=== PATIENT | female | born 1990 | race Caucasian/White ===

== ENCOUNTER 2018-07-03 16:13 | Inpatient (IN) | payer OTHER ==
[~2018-07-03] VITALS: Ht 177.8 cm; Wt 80.7 kg
[2018-07-03] MEDS ORDERED: ADDERALL 30 MG30 MG PO (16:47)
[2018-07-03] MEDS ORDERED: ZOLPIDEM TART12.5 M1 PO (16:48)
[2018-07-03] MEDS ORDERED: CLONAZEPAM0.5 M2 PO (16:48)
[2018-07-03 16:49] LABS: ABSOLUTE BASOPHIL COUNT 0 /CUMM (0.0-0.2); ABSOLUTE EOSINOPHIL COUNT 0.1 /CUMM (0.0-0.7); ABSOLUTE MONOCYTE COUNT 0.3 /CUMM (0.10-0.60); BASOPHIL % 0.4 % (0.0-2.0); GRANULOCYTE % 61.9 % (42.2-75.2); HEMATOCRIT 39.7 % (37-47); MEAN CORPUSCULAR HGB 30.7 PG (27.0-31.0); MEAN CORPUSCULAR HGB CONC 33.3 G/DL (33.0-37.0); MEAN CORPUSCULAR VOLUME 92.1 FL (81.0-99.0); MEAN PLATELET VOLUME 8.9 FL (7.4-10.4); PLATELET COUNT 202 /CUMM (130-400); RBC DISTRIBUTION WIDTH 13.3 % (11.5-14.5); RED BLOOD CELL CT 4.31 /CUMM (4.20-5.40); WHITE BLOOD CELL COUNT 6.5 /CUMM (4.8-10.8)
[2018-07-03] MEDS ORDERED: ZOLOFT100 M1 PO (16:49)
[2018-07-03] MEDS ORDERED: TRAZODONE HCL100 M1 PO (16:49)
[2018-07-03] MEDS ORDERED: SEASONIQUE 0.11 EACH PO (16:50)
[2018-07-03] MEDS ORDERED: MULTIVITAMINS1 EAC9 PO (16:51)
--- NOTE | 2018-07-03 16:56 | ED PSYCHIATRIC COMPLAINT ---
History of Present Illness General Chief Complaint: Psychiatric Related Complaint Stated Complaint: DEPRESSION, ANXIETY, +SI, SELF HARM Source: patient Exam Limitations: no limitations Vital Signs & Intake/Output Vital Signs & Intake/Output Vital Signs Date Time Temp Pulse Resp B/P B/P Pulse O2 O2 Flow FiO2 Mean Ox Delivery Rate 07/03 1617 97.9 86 18 132/85 99 Room Air Allergies Coded Allergies: morphine (Intermediate, HIVES 07/03/18) Reconcile Medications Clonazepam 0.5 MG TABLET 1 TAB PO QPM SLEEP/ANXIETY (Reported) Dextroamphetamine/Amphetamine (Adderall 30 MG Tablet) 30 MG TABLET 1 TAB PO TID ADD (Reported) L-Norgest/E.estradion-E.estrad (Seasonique 0.15-0.03-0.01 Tab) 0.15 MG-30 MCG ( 84)/10 MCG (7) TBDSPK.3MO 1 TAB PO DAILY CONTROL (Reported) Multiple Vitamin (Multivitamins) 1 EACH TABLET 1 TAB PO DAILY SUPPLEMENT ( Reported) Sertraline HCl (Zoloft) 100 MG TABLET 1 TAB PO QPM MENTAL HEALTH (Reported) Trazodone HCl 100 MG TABLET 2 TAB PO QPM SLEEP/MENTAL HEALTH (Reported) Zolpidem Tartrate (Zolpidem Tartrate ER) 12.5 MG TAB.MPHASE 2 TAB PO QPM SLEEP (Reported) Triage Note: PT STATES THAT SHE HAS HISTORY OF DEPRESSION AND THAT SHE HAS BEEN SPIRALING DOWN FOR THE PAST 5 YEARS . STATES THAT SHE HAS BEEN HAVING POSITIVE SI THOUGHTS WITH PLAN TO OD ON HER MEDS. ALSO STATES THAT SHE HAS BEEN BURNING HERSELF WITH HER CURLING IRON OR CIGARETTES. DENIES ETOH/DRUGS , PT ADMITS TO TAKING MORE THAN PRESCRIBED TRAZADONE TO TRY TO SLEEP. Triage Nurses Notes Reviewed? yes Onset: Gradual Duration: week(s): Timing: recent history Severity: moderate : No Patient currently breastfeeds: No HPI: 28YO FEMALE with hx of depression, anxiety presents to emergency department complaining of worsening depression and suicidal ideation for the past few months. Patient states the symptoms have recently worsened this month. Patient states that her suicidal thoughts for almost constant. Patient states she tried to break into her father's gun safe however was unsuccessful. She has been inflicting self harm by burning herself with cigarettes. Patient reports anhedonia and lack of appetite. Patient admits to taking more trazodone then prescribed because she is still having difficulty sleeping. She last saw her psychiatrist 4 days ago however did not inform them of her suicidal ideation, she only told him about her increased anxiety. Denies drug use, excessive alcohol use, HI. (Kristel Carranza) Past History Travel History Traveled to [place] past 21 day No Medical History Any Pertinent Medical History? see below for history Neurological: NONE EENT: NONE Cardiovascular: NONE Respiratory: NONE Gastrointestinal: NONE Hepatic: NONE Renal: NONE Musculoskeletal: NONE Psychiatric: anxiety, depression Blood Disorders: anemia Cancer(s): NONE Isolation History: Standard Surgical History Surgical History: non-contributory Psychosocial History What is your primary language Greenlandic Tobacco Use: Never used ETOH Use: denies use Illicit Drug Use: denies illicit drug use Family History Hx Contributory? No (Kristel Carranza) Review of Systems Review of Systems Constitutional: Reports: no symptoms. EENTM: Reports: no symptoms. Respiratory: Reports: no symptoms. Cardiovascular: Reports: no symptoms. GI: Reports: no symptoms. Genitourinary: Reports: no symptoms. Musculoskeletal: Reports: no symptoms. Skin: Reports: see HPI. Neurological/Psychological: Reports: see HPI. Hematologic/Endocrine: Reports: no symptoms. Immunologic/Allergic: Reports: no symptoms. All Other Systems: Reviewed and Negative (Kristel Carranza) Physical Exam Physical Exam General Appearance: well developed/nourished, no apparent distress, alert, awake Head: atraumatic, normal appearance Eyes: Bilateral: normal appearance, PERRL, EOMI. Ears, Nose, Throat: normal pharynx, hearing grossly normal Neck: normal inspection, supple, full range of motion Respiratory: normal breath sounds, no respiratory distress, lungs clear Cardiovascular: regular rate/rhythm Gastrointestinal: normal bowel sounds, soft, bilateral lower abdominal tenderness with circular burn diane to abdomen Extremities: normal range of motion Neurological/Psychiatric: awake, alert, calm Appearance/Memory/Insight: appropriate appearance Behavoir/Eye Contact/Speech: cooperative Thoughts/Hallucinations: normal thought pattern, no apparent hallucination Skin: circular burn rios to abdomen and left forearm SAD PERSONS SAD PERSONS Response Value Depression/Hopelessness? yes 2 Single//? yes 1 Social Support? has no support 1 Stated Future Intent? yes 2 Total 6 SAD PERSONS Done? yes (Calra MARY,Kristel Mckeon) Progress Differential Diagnosis: drug intoxication, drug overdose, drug withdrawal, electrolyte abnormality, depression, suicidal ideation Plan of Care: Orders Procedure Date/time Status Regular Diet 07/04 B Active Admit to inpatient psych 07/03 1935 Active Continuous Observation Monitor 07/03 162 Active URINE 07/03 162 Complete URINE DRUG SCREEN FOR ER ONLY 07/03 1621 Complete URINALYSIS 07/03 1621 Complete ETHANOL 07/03 1621 Complete COMPREHENSIVE METABOLIC PANEL 07/03 1621 Complete CBC WITHOUT DIFFERENTIAL 07/03 1621 Complete ED CRISIS PSYCH CONSULT 07/03 162 Active Current Medications Sig/Yvonne Start time Last Medication Dose Stop Time Status Admin Clonazepam 0.5 MG QPM 07/03 2100 UNVr (KlonoPIN) 07/10 2059 Trazodone HCl 200 MG QPM 07/03 2100 UNVr (Desyrel) Laboratory Tests 07/03/18 1723: Urine Opiates Screen < 100, Methadone Screen < 40, Barbiturate Screen < 60, Ur Phencyclidine Scrn < 6.00, Amphetamines Screen < 100, U Benzodiazepines Scrn 182 , Urine Cocaine Screen < 50, Urine Cannabis Screen 26.40, Urine Color YEL, Urine Clarity HAZY H, Urine pH 6.0, Ur Specific [place] >= 1.030, Urine Protein NEG, Urine Ketones NEG, Urine Nitrite NEG, Urine Bilirubin NEG, Urine Urobilinogen 0.2, Ur Leukocyte Esterase NEG, Ur Microscopic SEDIMENT EXAMINED, Urine RBC 3-5, Urine WBC 1-3 H, Ur Epithelial Cells FEW, Urine Hemoglobin TRACE-INTACT, Urine Glucose NEG, Urine Test NEGATIVE 07/03/18 1635: Anion Gap 7, Estimated GFR > 60, BUN/Creatinine Ratio 31.4 H, Glucose 91, Calcium 9.6, Total Bilirubin 0.3, AST 24, ALT 29, Alkaline Phosphatase 41, Total Protein 6.9, Albumin 4.3, Globulin 2.6, Albumin/Globulin Ratio 1.7, CBC w Diff NO MAN DIFF REQ, RBC 4.31, MCV 92.1, MCH 30.7, MCHC 33.3, RDW 13.3, MPV 8.9, Gran % 61.9, Lymphocytes % 30.4, Monocytes % 5.3, Eosinophils % 2.0, Basophils % 0.4, Absolute Granulocytes 4.0, Absolute Lymphocytes 2.0, Absolute Monocytes 0.3 , Absolute Eosinophils 0.1, Absolute Basophils 0, Serum Alcohol < 10.0 Patient's labs are stable. She is awaiting crisis evaluation. The patient was signed out to Dr. Daley pending crisis evaluation and disposition. Hand-Off Endorsed To: Magdaleno Daley DO Endorsed Time: 1846 Pending: consult (crisis) (Kristel Carranza) Departure Departure Disposition: STILL A PATIENT Condition: Stable Clinical Impression Primary Impression: Suicidal ideation Referrals: Patient Has No Primary Care Dr (PCP/Family) Departure Forms: Customer Survey General Discharge Information (Kristel Carranza) Psych Admission Note Psychiatric Admission: I have seen and evaluated KIYA CALABRESE. I have also reviewed all the pertinent lab results and diagnostic results. KIYA CALABRESE will be admitted to our inpatient Psychiatric unit for treatment and care. She is being admitted to Inpatient Psychiatry for major depression. Currently she is awake alert and oriented 3. (Magdaleno Daley DO)
--- NOTE | 2018-07-03 18:50 | ED PSYCH CRISIS CONSULTATION ---
Crisis Consult Basic Assessment Date of Consult: 07/03/18 Responsible Person/Accompanied By: self and friend Luz Maria Insurance Authorization: Insurance #1: Insurance name: LESLI BETANCOURT Phone number: Policy number: [id number] Group number: Authorization number: ED Provider: Patient's ED Provider: Kristel Carranza Primary Care Physician: Patient's PCP: Patient Has No Primary Care Dr PCP's Phone Number: Current Psychiatrist: Alex Jovel APRN at the [facility] Chief Complaint: Psychiatric Related Complaint Patient's Quote: "my suicidal thoughts are constant" Present Illness: Pt. was a 28 year old female, with long black hair and a tattoo on her left forearm, seen in the ER. She came in with her friend Luz Maria who she and friend reported had been hospitalized psychiatrically at [facility] in December. She reported that the friend had helped her talk about what had been bothering her and had supported her and helped her "feel ok" asking for help. Pt. stated that she had been feeling more depressed for 3 months, had started burning herself with a curling iron and cigarettes during this time and had more frequent and "more rational" suicidal thoughts, especially in the last week. She reported she attempted to guess the code to her father's gun safe to access a gun to kill herself with. She has no other suicidal attempts and only reported past SI 5 years ago when her boyfriend . She reported she had unresolved feelings of grief about her boyfriend's . She reported he had been using opiates or fentanyl, she found out, asking him to stop. He had stopped for awhile but he relapsed and overdosed and . She reported she started dating someone else "too soon" after that relationship, was engaged to that man, but he had cheated on her and had "knowingly" given her herpes within the last year after cheating and that relationship ended. She reported this man was a recovering addict too. She stated she had no history of drug use or abuse , but reported she "used" her psychiatric medications which included Adderall, Klonopin, Zoloft, Ambien and Trazodone. She denied abusing any of these drugs but stated sometimes when it felt like they were not working she took one more pill than prescribed, only with the Klonpin and Trazodone. She denied any past hospitalizations for psychiatric reasons and stated she had been seeing Alex Graysonnatalia DOBBINS at the [facility] since she was 18. She said he knew "a little" about what had been going on, but she was embarassed to talk about it in depth with anyone because she feared others would medical coding specialist her and think "she should be over it by now". She lived with her parents in [place], [place] and did not have a job. She reported she "sat and home and thought" and did little else with her time. Patient's Address: [place] [address] Other Phone Number: Who Do You Live With? Mother Family/Informants Interviewed: Spoke with Ang Treadwell on the phone [phone]. Mom stated she's scared to for her. She knows about the self harm, and extreme depression. She said her daughter told her she thinks of ways to end her life. Mom is shocked by the self harm incidents and this makes her believe she might do something and is suicidal. She reported her daughter was sad and withdrawn most of the time. Both parents are scared about this. Mom reported that her moods are either extremely high or low (example: she will bleach everything in her room to clean and then hours later will go back into her room and lay down, sleeping until 4 pm. Mom also reported that she has bleached her body because she thinks she has parasites and then other times she won't shower for days on end and she does not take care of her hygiene. Mom reported she saw a burn on her leg today and pt. told her she burned herself with a curling iron. Mom feels she is in the safest place she can be right now, in the ER. Mom reported pt. told her she hears voices at times telling her to hurt herself. Mom reported her daughter has low self esteem, she tells herself she is ugly and fat, she had gastric bypass surgery a few years ago and has lost alot of weight. She is very unhappy with everything in her life. She wears only long dresses or sweatpants to hide the rios on her legs. Mom reported she drinks alot. Allergies - Coded Allergies: morphine (Intermediate, HIVES 07/03/18) Current Medications - Scheduled Medications Clonazepam 0.5 MG TABLET 1 TAB PO QPM SLEEP/ANXIETY (Reported) Entered as Reported by Brigida Gaytan on 07/03/18 1648 Dextroamphetamine/Amphetamine (Adderall 30 MG Tablet) 30 MG TABLET 1 TAB PO TID ADD (Reported) Entered as Reported by Brigida Gaytan on 07/03/18 1647 L-Norgest/E.estradion-E.estrad (Seasonique 0.15-0.03-0.01 Tab) 0.15 MG-30 MCG ( 84)/10 MCG (7) TBDSPK.3MO 1 TAB PO DAILY CONTROL (Reported) Entered as Reported by Brigida Gaytan on 07/03/18 1650 Multiple Vitamin (Multivitamins) 1 EACH TABLET 1 TAB PO DAILY SUPPLEMENT ( Reported) Entered as Reported by Brigida Gaytan on 07/03/18 1651 Sertraline HCl (Zoloft) 100 MG TABLET 1 TAB PO QPM MENTAL HEALTH (Reported) Entered as Reported by Brigida Gaytan on 07/03/18 1649 Trazodone HCl 100 MG TABLET 2 TAB PO QPM SLEEP/MENTAL HEALTH (Reported) Entered as Reported by Brigida Gaytan on 07/03/18 1649 Zolpidem Tartrate (Zolpidem Tartrate ER) 12.5 MG TAB.MPHASE 2 TAB PO QPM SLEEP (Reported) Entered as Reported by Brigida Gaytan on 07/03/18 1648 Laboratory Results: Laboratory Tests 07/03/18 1723: Urine Opiates Screen < 100, Methadone Screen < 40, Barbiturate Screen < 60, Ur Phencyclidine Scrn < 6.00, Amphetamines Screen < 100, U Benzodiazepines Scrn 182 , Urine Cocaine Screen < 50, Urine Cannabis Screen 26.40, Urine Color YEL, Urine Clarity HAZY H, Urine pH 6.0, Ur Specific [place] >= 1.030, Urine Protein NEG, Urine Ketones NEG, Urine Nitrite NEG, Urine Bilirubin NEG, Urine Urobilinogen 0.2, Ur Leukocyte Esterase NEG, Ur Microscopic SEDIMENT EXAMINED, Urine RBC 3-5, Urine WBC 1-3 H, Ur Epithelial Cells FEW, Urine Hemoglobin TRACE-INTACT, Urine Glucose NEG, Urine Test NEGATIVE 07/03/18 1635: Anion Gap 7, Estimated GFR > 60, BUN/Creatinine Ratio 31.4 H, Glucose 91, Calcium 9.6, Total Bilirubin 0.3, AST 24, ALT 29, Alkaline Phosphatase 41, Total Protein 6.9, Albumin 4.3, Globulin 2.6, Albumin/Globulin Ratio 1.7, CBC w Diff NO MAN DIFF REQ, RBC 4.31, MCV 92.1, MCH 30.7, MCHC 33.3, RDW 13.3, MPV 8.9, Gran % 61.9, Lymphocytes % 30.4, Monocytes % 5.3, Eosinophils % 2.0, Basophils % 0.4, Absolute Granulocytes 4.0, Absolute Lymphocytes 2.0, Absolute Monocytes 0.3 , Absolute Eosinophils 0.1, Absolute Basophils 0, Serum Alcohol < 10.0 Past History Past Medical History Neurological: NONE EENT: NONE Cardiovascular: NONE Respiratory: NONE Gastrointestinal: NONE Hepatic: NONE Renal: NONE Musculoskeletal: NONE Psychiatric: anxiety, depression Blood Disorders: anemia Cancer(s): NONE Past Surgical History Surgical History: non-contributory Psychosocial History Strengths/Capabilities: Pt is articulate and is asking for help. Physical Limitations (Interventions): None noted Psychiatric Treatment History Psych Treatment Psychiatric Treatment Yes Inpatient Treatment No Outpatient Treatment Yes Location of Treatment [facility] Reason for Treatment depression and anxiety since age 18 Dates of Treatment 2007 to present Response to Treatment Pt. reports she is not fully open with treaters because she is "embarassed" Diagnosis by History: Depression Substance Use/Abuse History Drug Use/Abuse Substances Used/Abused Yes Substance Used/Abused Alcohol First Use teen years Last Used last weekend How much used/taken 3-4 drinks on the weekends only, does not consider this abuse. How often only on the weekends socially For how long unknown Route of use oral Substance Abuse Treatment Substance Abuse Treatment Past Substance Abuse [place] No Current Mental Status Mental Status Orientation: Person, Place, Situation Affect: Flat Speech: Soft Neuro-vegetative: Anhedonia, Appetite Decreased, Concentration Poor, Energy Decreased, Loss of Interest, Sleep Disturbance Appearance Appearance- Dress/Hygiene: good hygiene, in hospital gown, tattoo on left arm Behaviors Thought Process: WNL Thought Content: WNL Memory: WNL Insight: Fair SI/HI Risk Assessment Past Suicidal Ideation/Attempts Yes Current Suicidal Ideation/Att Yes Past Homicidal Ideation/Att: No Current Homicidal Ideation/Attempts No Degree of Intent: Self Destructive/No , Thoughts/No Intent Danger To: Self Gravely Disabled: Lack of Insight, Poor Impulse Control, Poor Judgment Risk Factors: access to lethal means, high anxiety/distress, poor impulse control, lack of outcome concern, limited support Lethality Ratin PTSD Checklist PTSD Score: PTSD Score: Response Value Disturbing memories,thoughts,images of stressful experience? Extremely 5 Disturbing dreams of stressful experience from past? Moderately 3 Suddenly acting/feeling as if reliving stressful experience? Extremely 5 Unpleasant feeling when reminded of stressful experience? Extremely 5 Physical reactions when reminded of stressful experience? Quite a bit 4 Avoid thinking/talking of stressful exp. to avoid reactions? Extremely 5 Avoid activities/situations that remind of stressful exp.? Extremely 5 Trouble remembering important parts of stressful experience? Moderately 3 Loss of interest in things that you used to enjoy? Extremely 5 Feeling distant or cut off from other people? Extremely 5 Feeling emotionally numb/unable to love those close to you? Extremely 5 Feeling as if your future will somehow be cut short? Extremely 5 Trouble falling or staying asleep? Extremely 5 Feeling irritable or having angry outbursts? Moderately 3 Having difficulty concentrating? Extremely 5 Being super alert or watchful on guard? Moderately 3 Feeling jumpy or easily startled? Extremely 5 Total 76 ED Management Sitter: Yes Restraints: No DSM5/PS Stressors/Medical Prob Diagnosis' (DSM 5, Stressors, Medical): F32.10 PTSD F32.2 Major Depressive Disorder, Severe Current GAF: 25 Departure Disposition Psych Medical Clearance Date: 07/03/18 Date Disposition Established: 07/03/18 Time Disposition Established: 1854 Plan for Disposition - Modality: Inpatient Psychiatry Facility: [facility] Type of IP Admission: Voluntary Referrals Patient Has No Primary Care Dr (PCP/Family)
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
[2018-07-03 20:30] VITALS: BP 141/70
[2018-07-04 08:50] VITALS: BP 103/54
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
--- NOTE | 2018-07-04 13:46 | SOCIAL WORKER PROG NOTE PSYCH ---
Hunter Salinas 07/04/18 1339: Social Work Progress Note Progress Note I Hunter Brad (BARREL INSPECTOR TIGHT Business Office Technician) met with Sil[facility] to complete her social history. She claimed it was to early to identify her mood. She reports having anxiety feeling antsy but could not describe specific concerns or worries. She also described her depression has high today. She expressed her sleep was not great but her sleep medications are being changed. The patient was soft spoken, cooperative and engaged in conversation.
--- NOTE | 2018-07-04 14:59 | History & Physical ---
General Information and HPI MD Statement: I have seen and personally examined KIYA CALABRESE and documented this H&P. The patient is a 28 year old F who presented with a patient stated chief complaint of [suicidal ideation]. Source of Information: patient, old records History of Present Illness: 28 yr old female with pmf of morbid obesity who had gastric bypass surgery 5 years ago and since then has lost 500lbs, suicidal ideation in past, GERD on famotidine, Anemia( dec 2017- was admitted to [facility] for workup and was transfused and had workup which included EGD and colonoscopy which acc to pt was unremarkable), Cholecystectomy 4 years ago, Nicotine dependence currenty uses E cigs( smokes 1 pod over 2-3 days- 1 pod equals 1 pack of cigs), previously smoked 1ppd of cigs from age 18 to 27, social drinker of 3-4 drinks over the weekend was admitted to psych for suicidal ideation. Allergies/Medications Allergies: Coded Allergies: morphine (Intermediate, HIVES 07/03/18) Home Med list Clonazepam 0.5 MG TABLET 1 TAB PO QPM SLEEP/ANXIETY (Reported) Dextroamphetamine/Amphetamine (Adderall 30 MG Tablet) 30 MG TABLET 1 TAB PO TID ADD (Reported) L-Norgest/E.estradion-E.estrad (Seasonique 0.15-0.03-0.01 Tab) 0.15 MG-30 MCG ( 84)/10 MCG (7) TBDSPK.3MO 1 TAB PO DAILY CONTROL (Reported) Multiple Vitamin (Multivitamins) 1 EACH TABLET 1 TAB PO DAILY SUPPLEMENT ( Reported) Sertraline HCl (Zoloft) 100 MG TABLET 1 TAB PO QPM MENTAL HEALTH (Reported) Trazodone HCl 100 MG TABLET 2 TAB PO QPM SLEEP/MENTAL HEALTH (Reported) Zolpidem Tartrate (Zolpidem Tartrate ER) 12.5 MG TAB.MPHASE 2 TAB PO QPM SLEEP (Reported) Past History Travel History Traveled to [place] past 21 day No Medical History Neurological: NONE EENT: NONE Cardiovascular: NONE Respiratory: NONE Gastrointestinal: NONE Hepatic: NONE Renal: NONE Musculoskeletal: NONE Psychiatric: anxiety, depression Blood Disorders: anemia Cancer(s): NONE History of MRSA: No History of VRE: No History of CDIFF: No Isolation History: Standard Surgical History Surgical History: non-contributory Past Family/Social History Psychosocial History Where do you live? 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 EENTM: Denies: eye pain. Cardiovascular: Denies: chest pain, palpitations. Respiratory: Denies: cough, short of breath. GI: Denies: abdominal pain. Musculoskeletal: Denies: back pain. Hematologic/Endocrine: Reports: other (h/o anemia). Exam & Diagnostic Data Last 24 Hrs of Vital Signs/I&O Vital Signs Date Time Temp Pulse Resp B/P B/P Pulse O2 O2 Flow FiO2 Mean Ox Delivery Rate 07/04 0850 97.9 67 103/54 07/03 2030 99.1 100 141/70 07/03 1617 97.9 86 18 132/85 99 Room Air Intake & Output 07/04 1600 07/04 0800 07/04 0000 Intake Total Output Total Balance Patient 80.739 kg Weight Physical Exam General Appearance Alert, Oriented X3, Cooperative, No Acute Distress Skin No Rashes HEENT Atraumatic, EOMI Neck Supple Cardiovascular Regular Rate, Normal S1, Normal S2 Lungs Clear to Auscultation, Normal Air Movement Abdomen Soft, No Tenderness Neurological Cranial Nerves II through XII: intact Assessment/Plan Assessment: Nicotine dependence- pt is on e cigs at home. will start on nicotine patch 7mg / day. encouraged to quit. GERD- started on famotidine 20mg po bid. Bariatric surgery 5 years ago- pt should be started on bariatric MVI. Suicidal ideation- management per psychiatry. dw pt the care plan. As Ranked By This Provider Problem List: 1. Suicidal ideation Miscellaneous Miscellaneous Documentation Attending Case Discussed With: Ann SUMMERS,Jovany Primary Care Physician: Patient Has No Primary Care Dr Patient sees these Specialists none Level of Patient Care: [place] Abad
--- NOTE | 2018-07-04 16:31 | SOCIAL WORKER PROG NOTE PSYCH ---
Social Work Progress Note Progress Note This scenario writer attempted to meet with patient throughout the day. She was engaged in group activities and asked not to meet. Patient also meet with Hunter Salinas, Credit Control Administrator and completed a social today.
[2018-07-04 20:03] VITALS: BP 145/81
[2018-07-05 07:44] VITALS: BP 127/78
--- NOTE | 2018-07-05 08:24 | CP SOUTH PROGRESS NOTE PSYCH ---
Psych (Inpt) Progress Note Progress Note Mental Status Examination Pt. has steady gait, she was well groomed and well dressed today, she was calm and cooperative She showed normal psychomotor activity, there were no abnormal or bizarre behaviors, his speech was normal, not pressured, not slurred, she showed brighter affect today. She reported that her mood is much better today, she denied thinking of suicide today, denied thoughts of violence or homicide, denied hallucinations, denied feeling paranoid, there were no delusions during the interview. Coherent, there was no thought disorder, Partial insight, Questionable judgment, patient was alert and oriented to time place and person. No difficulties with information processing, normal short-term memory Assessment: A 28-year-old single white female who was admitted because of increasing depression and thoughts of suicide. Patient has been in psychiatric treatment since age 18. The patient was on high-dose Ambien CR (24.5 mg at bedtime) and Adderall, Klonopin, and Seroquel patient may have been overusing some of her medications including the Adderall. Patient's mother also reported that there was excessive drinking lately (??). Diagnoses: Unspecified depressive disorder By history only PTSD By history only ADHD by history only major depressive disorder Rule out alcohol use disorder Rule out stimulant use disorder Hypnotic use disorder Treatment Plan Update: Continue Ambien 10 mg at bedtime Continue trazodone 200 mg at bedtime Continue gabapentin 900 mg at bedtime Change sertraline to morning time Chlorpromazine 50 MG Q4 HRS NEEDED PRN 07/05 1045 Clonazepam 0.5 MG QPM 07/03 2100 Famotidine 20 MG BID 07/04 2100 Gabapentin 1,200 MG AT BEDTIME 07/05 2100 Gabapentin 600 MG 0800,1300,1700 PRN 07/05 1045 Gabapentin 900 MG AT BEDTIME 07/04 2100 Multivitamins 1 TAB DAILY 07/04 0900 Sertraline HCl 100 MG DAILY 07/04 1010 Trazodone HCl 200 MG QPM 07/03 2100 Zolpidem Tartrate 10 MG AT BEDTIME NEED. Normal short-term memory Estimate of intellectual functioning: Average Assets/Strengths Patient Identified Assets/Strengths: Patient is physically healthy and has supportive family Impression/Plan Impression and Plan: 28-year-old single white female who was admitted because of increasing depression and thoughts of suicide. Patient has been in psychiatric treatment since age 18. The patient was on high-dose Ambien CR 24.5 mg at bedtime and Adderall Klonopin and Seroquel patient may have been overusing some of her medications including the Adderall. Patient's mother also reported that there was excessive drinking lately. - Include all active medical diagnosis that require tx DSM 5 Diagnosis(es): Unspecified depressive disorder By history only PTSD By history only ADHD by history only major depressive disorder Rule out alcohol use disorder Rule out stimulant use disorder Hypnotic use disorder - Initial Tx Plan for Active Psych & Medical Conditions Treatment Plan: Inpatient psychiatric care with safety checks every 15 minutes Nursing assessments and vital signs Group therapy Activities therapy and milieu therapy Biopsychosocial assessment and collateral information by social work, and aftercare planning by social work Continue Ambien just at 10 mg at bedtime and Continue trazodone just at 200 mg at bedtime at least for the time being Add gabapentin 900 mg at bedtime Change sertraline to morning time
[2018-07-05 20:08] VITALS: BP 117/73
--- NOTE | 2018-07-06 08:32 | CP SOUTH PROGRESS NOTE PSYCH ---
Psych (Inpt) Progress Note Progress Note Vital Signs Date Time Temp Pulse B/P B/P O2 FiO2 07/06 944 97.3 78 116/67 07/05 2008 98.5 96 117/73 Mental Status: Pt. was alert and oriented to time place and person. She was well groomed and well dressed today, she was calm and cooperative. She showed normal psychomotor activity, there were no abnormal or bizarre behaviors. Her speech was normal, not pressured, not slurred, she showed brighter affect today. She reported that her mood is much better today, she denied thinking of suicide today, denied thoughts of violence or homicide, denied hallucinations, denied feeling paranoid. There were no delusions during the interview. She was coherent, there was no thought disorder Assessment: A 28-year-old single white female who was admitted because of thoughts of suicide. Patient has been in psychiatric treatment since age 18. The patient was on high-dose Ambien CR (24.5 mg at bedtime), Adderall, Klonopin, and Seroquel patient may have been overusing some of her medications including the Adderall. The patient seems to be doing much better. She however remains unclear about what she is going ago after this the patient reported that she met with her mom yesterday and that has do with thinking about residential treatment for trauma (??) Diagnoses: Unspecified depressive disorder By history only PTSD By history only ADHD by history only major depressive disorder Rule out alcohol use disorder Rule out stimulant use disorder Hypnotic use disorder Treatment Plan Update: D/C Klonopin D/C Ambien 10 mg p.o. nightly as needed for the time being Continue trazodone 200 mg at bedtime Chlorpromazine 50 MG Q4 HRS NEEDED PRN Sertraline 100 MG DAILY Trazodone 200 MG QPM Change gabapentin to 600 mg 8 AM and 2 PM and 1200 mg at bedtime Multivitamins 1 TAB DAILY 07/04 09 Sertraline HCl 100 MG DAILY 07/04 1010 Trazodone HCl 200 MG QPM 07/03 2100 Zolpidem Tartrate 10 MG AT BEDTIME NEED.
[2018-07-06 09:44] VITALS: BP 116/67
[2018-07-06 19:38] VITALS: BP 120/75
[2018-07-07 08:08] VITALS: BP 123/65
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
--- NOTE | 2018-07-07 17:20 | SOCIAL WORKER PROG NOTE PSYCH ---
Social Work Progress Note Progress Note The services requested require additional review. You will be contacted regarding the status of this request if further information is needed. An authorization decision will be made within the required timeframes and details of that decision may be found under the member's authorization history. Member Name Member ID Member Subscriber Name Subscriber ID KIYA CALABRESE [id number] KIYA CALABRESE [id number] Pended Authorization # Client Authorization # Type of Request [id number] CONCURRENT Date of Admission/ Start of Services Requested From Submission Date 07/03/2018 07/06/2018 07/07/2018 Level of Service Type of Service Level of Care Type of Care INPATIENT/[facility]patient [facility] Reason Code P76 Provider Name & Address Provider ID Provider Alternate ID NPI # for Authorization TONIA RIOS [address] [place] [id number]
--- NOTE | 2018-07-07 18:37 | SOCIAL WORKER PROG NOTE PSYCH ---
Social Work Progress Note Progress Note This gag writer met with patient. Patient stated that her depression has been on/ off for the past 5 years since her boyfriend overdosed. Patient denied engaging in any substance use. She denied SI/HI/AH/VH (though reported SI to nursing earlier today). Patient stated that she feels safe on the unit and will immediately inform staff if feeling unsafe. She expressed interest in a referral to [facility] and feels that she will be ready to discharge on Saturday (). Patient is agreeable to a family meeting with her parents. This gag writer spoke with patient's mother, Mile De Guzman, by phone and a family meeting is scheduled for 07/09/18 at 10:30am. She was informed of anticipated discharge on Saturday. Mrs. De Guzman expressed concerns about patient's safety related to concerns about SI, medication use other than prescribed and self harm behaviors. This gag writer will relay these concerns to the team/Dr. Ledbetter and Mrs. De Guzman agreed to discuss these further in the family meeting. Due to patient's father's work schedule a meeting tomorrow could not be scheduled.
[2018-07-07 20:01] VITALS: BP 134/68
[2018-07-08 08:02] VITALS: BP 121/64
--- NOTE | 2018-07-08 13:40 | CP SOUTH PROGRESS NOTE PSYCH ---
Psych (Inpt) Progress Note Progress Note Include the following elements, when applicable: Involvement in the active treatment of the patient with behavioral observations of the patient and the patient's response to the treatment. Review of the ongoing treatment process in the context of the treatment plan. Indication of how multi-disciplinary staff members are carrying out the treatment plan. Plans for future interventions and recommendations for revision of the treatment plan. Liaison with other physicians/providers. Progress Note: [Patient discussed at team meeting. "I am a little better than yesterday". The patient did not sleep well last night as she got a new roommate who is awake for much of the night. She reports that her mood is improved. Her appetite is is good, concentration is improving although she misses her Adderall. She is not suicidal or homicidal. She is future oriented. The patient has done well internalizing the therapy she has done on the unit. She feels more confident in her ability to identify and manage her symptoms when she gets overwhelmed. She is alert to self soothe. She feels more confident in her ability to change her mindset. She is using opposite to emotion action when she tends to isolate and is working hard at being visible in the milieu. She is tolerating her medication well with no side effects. Mental status examination: 28-year-old female with long black hair. Alert and oriented 3, gait steady. Eye contact good. Presents is calm, pleasant and appropriate. Speech is normal in rate, rhythm, volume and tone. She describes her mood as "a little better"; her affect is euthymic. She is not suicidal or homicidal. Thought processes normal in tempo, stream and form. There is still an obsessional quality to her thoughts. Attention and concentration are good at interview. There is no perceptual abnormality. Impulse control is good. Patient's intellectual level is average, fund of knowledge average, use of language appropriate. Recent and remote memory are intact. The patient's insight is good and her judgment is unimpaired. Assessment: The patient has improved significantly. She is future oriented. She feels a greater sense of control of her obsessional thinking. Discussed response prevention using an elastic bandage and the patient is keen to adopt this. She is anxious for discharge and wishes to attend an intensive outpatient program. The family meeting has been scheduled for this afternoon. Discharge will be discussed at that time. Diagnosis: Unspecified depressive disorder Generalized anxiety disorder Obsessive-compulsive traits PTSD by history ADHD by history Rule out substance use disorders [alcohol, stimulants, sedative-hypnotics] Medications: Sertraline 100 mg p.o. daily gabapentin 600 mg p.o. 3 times a day Nicotine gum 2 mg every 2 hours as needed [not using] Chlorpromazine 50 mg p.o. every 4 hours as needed anxiety or agitation Trazodone 200 mg p.o. nightly Treatment plan: -No medication changes today -Family meeting this afternoon -Probable discharge tomorrow with follow-up with the intensive outpatient program where she can continue with her therapy, particularly DPT.
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
[2018-07-08 19:25] VITALS: BP 121/71
[2018-07-09 07:42] VITALS: BP 125/75
[2018-07-09] MEDS ORDERED: GABAPENTIN600 M1 PO (08:41)
[2018-07-09] MEDS ORDERED: TRAZODONE HCL100 M1 PO (08:41)
[2018-07-09] MEDS ORDERED: ZOLOFT100 M1 PO (08:41)
[2018-07-09] MEDS ORDERED: AMBIEN10 M1 PO (08:41)
[2018-07-09] MEDS ORDERED: CHLORPROMAZINE50 M2 PO (09:13)
--- NOTE | 2018-07-09 09:17 | Patient Discharge Instructions ---
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, borderline personlaity structure sedative hypnotic abuse Summary Tests/Major Procedures Lab ALT 29 U/L 07/03/18 1635 AST 24 U/L 07/03/18 1635 Albumin 4.3 g/dL 07/03/18 1635 Albumin/Globulin Ratio 1.7 % 07/03/18 1635 Alkaline Phosphatase 41 U/L 07/03/18 1635 Anion Gap 7 07/03/18 1635 BUN 22 mg/dL H 07/03/18 1635 BUN/Creatinine Ratio 31.4 % H 07/03/18 1635 Calcium 9.6 mg/dL 07/03/18 1635 Carbon Dioxide 30 mmol/L 07/03/18 1635 Chloride 99 mmol/L 07/03/18 1635 Creatinine 0.7 mg/dL 07/03/18 1635 Estimated GFR > 60 ml/min 07/03/18 1635 Globulin 2.6 gm/dL 07/03/18 1635 Glucose 91 mg/dL 07/03/18 1635 Potassium 4.8 mmol/L 07/03/18 1635 Sodium 136 mmol/L L 07/03/18 1635 Total Bilirubin 0.3 mg/dL 07/03/18 1635 Total Protein 6.9 g/dL 07/03/18 1635 Hct 39.7 % 07/03/18 1635 Hgb 13.2 G/DL 07/03/18 1635 MCH 30.7 PG 07/03/18 1635 MCHC 33.3 G/DL 07/03/18 1635 MCV 92.1 FL 07/03/18 1635 Plt Count 202 /CUMM 07/03/18 1635 RBC 4.31 /CUMM 07/03/18 1635 RDW 13.3 % 07/03/18 1635 WBC 6.5 /CUMM 07/03/18 1635 Urine Test NEGATIVE 07/03/18 1723 Studies Pending at [place]: Needs Lipid profile and HbAic - richardson;l be on antipsychotic for short time Patient Instructions Contact Information Your Psychiatrist on [facility] was Khloe SUMMERS,[place] * If you are experiencing an emergency related to this hospitalization, please call [phone] to contact the treating psychiatrist or the psychiatrist-on- call. * To Request a copy of your medical records, please contact the Medical Records Department at [phone]. * To request results of studies pending at the time of discharge, please call [phone]. * Continue your Medications until directed to stop by your Healthcare provider. General Medication Information Please continue to take your new medications and your continued home medications , unless otherwise indicated on your discharge medication list, or unless directed by your MD or AQUACULTURAL WORKER SUPERVISOR to stop them. Special Instructions Diet Regular Activity As Tolerated - Tobacco Use Treatment Offered Post DC Medications Offered: Not Applicable Post DC Tobacco Treatment Plan: Not Applicable - EtOH/Drug Use D/O Treatment Offered Post DC Medications Offered: Ref Med EtOH/Drug Use D/O Post DC EtOH/SubAbuse [place] Plan: [facility] SubAbuse/Dual IOP Program Appt Date: 07/09/18 Metabolic Screening () Not Applicable, patient not on a neuroleptic. OR () Patient on a neuroleptic(s) . Enter below results for Hemoglobin A1C, and lipid panel if obtained during the last 365 days. BMI: Blood Pressure: 125/75 Laboratory Results From [facility] EHR (If applicable): Pt was ordered PRN antipsychotic only. Will be taking on standing basis for a short period = determiend in discharge. Will have lipid panel and HbA1c at [facility]. Advance Directives Does the Patient have Medical Advance Directives No/Refused further info Does Pt have Psychiatric Advance Directives? No/Refused further info Does Patient have a Designated Surrogate Decision Maker: No Information About Psychiatric Advance Directives Provided? Refused Discharge Plan Post Hospital Treatment Plan: INtake at [facility] 07/09
--- NOTE | 2018-07-09 11:50 | SOCIAL WORKER PROG NOTE PSYCH ---
Social Work Progress Note Progress Note Faxed Transfer to [facility].
--- NOTE | 2018-07-09 14:25 | DISCHARGE SUMMARY REPORT-PSYCH ---
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 Hospital Course Significant Lab Findings: Lab ALT 29 U/L 07/03/18 1635 AST 24 U/L 07/03/18 1635 Albumin 4.3 g/dL 07/03/18 1635 Albumin/Globulin Ratio 1.7 % 07/03/18 1635 Alkaline Phosphatase 41 U/L 07/03/18 1635 Anion Gap 7 07/03/18 1635 BUN 22 mg/dL H 07/03/18 1635 BUN/Creatinine Ratio 31.4 % H 07/03/18 1635 Calcium 9.6 mg/dL 07/03/18 1635 Carbon Dioxide 30 mmol/L 07/03/18 1635 Chloride 99 mmol/L 07/03/18 1635 Creatinine 0.7 mg/dL 07/03/18 1635 Estimated GFR > 60 ml/min 07/03/18 1635 Globulin 2.6 gm/dL 07/03/18 1635 Glucose 91 mg/dL 07/03/18 1635 Potassium 4.8 mmol/L 07/03/18 1635 Sodium 136 mmol/L L 07/03/18 1635 Total Bilirubin 0.3 mg/dL 07/03/18 1635 Total Protein 6.9 g/dL 07/03/18 1635 Hct 39.7 % 07/03/18 1635 Hgb 13.2 G/DL 07/03/18 1635 MCH 30.7 PG 07/03/18 1635 MCHC 33.3 G/DL 07/03/18 1635 MCV 92.1 FL 07/03/18 1635 Plt Count 202 /CUMM 07/03/18 1635 RBC 4.31 /CUMM 07/03/18 1635 RDW 13.3 % 07/03/18 1635 WBC 6.5 /CUMM 07/03/18 1635 Urine Test NEGATIVE 07/03/18 1723 Course Consultations: Seen by hospitalist on admission for full review of systems and physical examination Allergies: Coded Allergies: morphine (Intermediate, HIVES 07/03/18) Hospital Course/TX Response: This 28-year-old female was admitted with symptoms of increased depression, deliberate self-harm and suicidal thoughts. There is also a history of overusing clonazepam. On admission the patient was reviewed by Dr. Hu. Clonazepam and Adderall were held due to the possibility of abuse. Zolpidem was reduced. Gabapentin was increased. Trazodone was continued at a lower dose. Over the course of the patient's admission she participated well in individual and group psychotherapy. Sertraline was increased at 250 mg daily and she tolerated this well. The patient became easily overwhelmed, anxious and agitated. On admission chlorpromazine had been prescribed on an as-needed basis. On the day of discharge the patient requested that this medication be prescribed as an outpatient. In order to minimize any possibility of overuse, the medication was ordered on a standing basis. It is understood that this medication will be for short-term only, to to help transition out of hospital and into an intensive outpatient program at that from that point on it would be tapered. Patient also continues to take zolpidem and again understands that it will be tapered. At the time of discharge the patient was alert and oriented 3 and her gait was steady. Eye contact was good, speech was normal. She described her mood is anxious. She was not suicidal or homicidal. Her affect showed good range. She was future oriented and motivated for treatment. There were no psychotic symptoms. Her insight seemed good and her judgment is unimpaired. During the course of admission we discussed the symptoms that are most distressing to the patient. She relates to the concept of chronic feelings of emptiness, fear of abandonment, affective instability, deliberate self-harm and impulsivity. Discussed the concept of borderline personality structure and the possibility of using DBT to help with this. Family meeting was held with patient, her parents, psychiatric social worker supervisor and myself. Please see social work note for details. The family was held to set limits and boundaries and to draw up a contract. Following the meeting the patient's parents went upstairs where they worked on house rules of the contract as the patient did the same on the Unit. They then mentioned to up in agreement. Discharge HBIPS - Tobacco Use Treatment Offered Post DC Medications Offered: Script Given-See Med List Post DC Tobacco Treatment Plan: Not Applicable - EtOH/Drug Use D/O Treatment Offered Post DC Medications Offered: Med Not Indicated for D/O Post DC EtOH/SubAbuse TX Plan: [facility] SubAbuse/Dual IOP Metabolic Screening - Screen if on a Neuroleptic Medication - Metabolic screening should include: - Blood Pressure, BMI, Glucose or Hgb A1c, & a - Lipid profile from within the past 365 days. Metabolic Screening () Not Applicable, patient not on a neuroleptic. OR () Patient on a neuroleptic(s) . Enter below results for Hemoglobin A1C, and lipid panel if obtained during the last 365 days. BMI: Blood Pressure: 125/75 Laboratory Results From [facility] EHR (If applicable): [Patient started standing neuroleptic only on the day of discharge. Will have a lipid profile and glycosylated hemoglobin taken at [facility] intensive outpatient. Unable to do so on the day of discharge as the patient was not fasting for] Discharge Instructions General Discharge Information Multiple Neuroleptics: () Not Applicable OR Document below three failed attempts at monotherapy, or a plan to taper to monotherapy, or augmentation of Clozapine. () Discharge Diet Regular Discharge Activity As Tolerated DC Disposition: Discharged home to live with parents and follow-up as intensive outpatient Referrals Ordered Referrals INTENSIVE OUTPT PSY-SUBSTANCE 07/10/[address] [place] [address] [id number] [address] [phone] IOP Intake appointment: , 07/10/18, at 1:15pm You also requested the phone number for the [facility] DBT program: [phone] Provider Referral 07/16/18 For Providers: [[facility]] For Groups: [Smoking Cessation Group] Smoking Cessation Group [facility] [address] [facility] [phone] Group meets every other Saturday at 4pm Next group: 07/16/18, at 4pm Prescriptions Stop taking the following medications: Dextroamphetamine/Amphetamine (Adderall 30 MG Tablet) 30 MG TABLET ORAL THREE TIMES DAILY Zolpidem Tartrate (Zolpidem Tartrate ER) 12.5 MG TAB.MPHASE ORAL Every night Clonazepam (Clonazepam) 0.5 MG TABLET ORAL Every night Trazodone HCl (Trazodone HCl) 100 MG TABLET ORAL Every night Sertraline HCl (Zoloft) 100 MG TABLET ORAL Every night Continue taking these medications: L-Norgest/E.estradion-E.estrad (Seasonique 0.15-0.03-0.01 Tab) 0.15 MG-30 MCG ( 84)/10 MCG (7) [id number] 1 Tablet ORAL DAILY Comments: Last Taken:NOT GIVEN IN THE HOSPITAL Time: Multiple Vitamin (Multivitamins) 1 EACH TABLET 1 Tablet ORAL DAILY Comments: Last Taken:07/09/18 Time:9AM Start taking the following new medications: Sertraline HCl (Zoloft) 100 MG TABLET 150 Milligram ORAL DAILY Qty = 21 No Refills Comments: Last Taken:07/09/18 Time:9AM Zolpidem Tartrate (Ambien) 10 MG TABLET 10 Milligram ORAL AT BEDTIME Qty = 15 No Refills Instructions: ONE TAB AT NOGHT FOR ONE WEEK, THEN HALF A TAB AT NIGHT FOR THREE DAYS, HALF A TAB EVERY OTHER NIGHT UNTIL GONE Comments: Last Taken:07/08/18 Time:9:30 PM Gabapentin (Gabapentin) 600 MG TABLET 1 Tablet ORAL THREE TIMES DAILY Qty = 42 No Refills Comments: Last Taken:07/09/18 Time:1:30pm Trazodone HCl (Trazodone HCl) 100 MG TABLET 2 Tablet ORAL 2200 Qty = 28 No Refills Comments: Last Taken:07/08/18 Time:9:30PM Chlorpromazine HCl (Chlorpromazine HCl) 50 MG TABLET 50 Milligram ORAL 0800,1200,1800 Qty = 56 No Refills Comments: Last Taken:07/09/18 Time:7AM Studies Pending at Discharge Needs Lipid profile and HbAic - richardson;l be on antipsychotic for short time Copies To: .
--- NOTE | 2018-07-09 17:56 | SOCIAL WORKER PROG NOTE PSYCH ---
Social Work Progress Note Progress Note This va underwriter met with patient. She shared that she felt safe and ready to discharge today. She denied SI/HI/AH/VH and reviewed the safety plan that was discussed yesterday in the family meeting. Patient accepted the intake for [facility] tomorrow and plans to attend as scheduled (07/10/18 at 1:15pm). Patient stated that she visited with her parents for about 2 hours last night and they worked together on a contract in which she felt that she was able to express her needs as well. As it was briefly discussed yesterday, this va underwriter inquired about the patient's thoughts on a DBT program. [facility] included in the referral section of her discharge documents. Patient stated that she does not feel the need for any additional referrals or appointments at thist time. Patient requested that this va underwriter contact her mother to confirm discharge. This va underwriter spoke with patient's mother, Mrs. De Guzman, by phone at 11:40am. She was informed that the patient will be discharging today and of discharge plans. She stated that they met and worked on the contract last night. Mrs. De Guzman stated that she will be staying home with her daughter tomorrow as he work schedule changed and will discuss this with her daughter. She reviewed the safety plan that was discussed yesterday. Mrs. De Guzman stated that she felt that this discharge plan was a good plan and will provide transportation home this afternoon. Patient signed an CARL for [facility] APRN, the prescriber she was seeing prior to this hospital admission. A vm was left for him by this va underwriter at 12pm ). Patient informed this va underwriter just prior to leaving that she did not intend on returning to [facility] and will speak with her [facility] about referrals. Patient stated that if [facility] returned the call then we could discuss the patient's hospitalization and discharge. Upon her arrival to [facility] this afternoon, patient's mother stated that she was in agreement with the patient regarding her plans not to return to [facility] for medication management. Faxed Referral(s) Referred To: [facility] Transition of Care Documents sent: Health Summary Faxed to: [facility] Fax #: [phone] Faxed by: Evonne Rodriguez LCSW Date faxed: 07/09/18 Time Faxed: [phone]
== END 2018-07-09 14:14 | DRG 751 ==
LOC: ERH 16:13 → ERHI 19:35 → CP SOUTH 19:35
PROVIDERS: Physician Assistant
DX: F33.9 Major depressive disorder, recurrent, unspecified (principal); F41.9 Anxiety disorder, unspecified; F60.3 Borderline personality disorder; F13.10 Sedative, hypnotic or anxiolytic abuse, uncomplicated
CPT/HCPCS: 80307; 81001; 81025; G0480